=== PATIENT | male | born 1995 | race Caucasian/White ===

== ENCOUNTER 2018-06-11 20:57 | Emergency (ER) | payer MEDICAID, OTHER ==
[~2018-06-11] VITALS: Ht 172.7 cm; Wt 72.7 kg
[2018-06-11 21:01] VITALS: Ht 172.7 cm; Wt 72.7 kg
[2018-06-11] MEDS ORDERED: LORAZEPAM 1 MG TAB PO ONE (22:00)
[2018-06-11 22:43] VITALS: BP 122/74; PULSE 84; RESP 14
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
== END 2018-06-11 23:10 | disposition home or self-care (01) ==
LOC: E/R 20:57
DX: M54.2 Cervicalgia (principal); M79.671 Pain in right foot; M25.571 Pain in right ankle and joints of right foot; R51 Headache; I10 Essential (primary) hypertension; J45.909 Unspecified asthma, uncomplicated
CPT/HCPCS: 73610; 73630; Z7502; Z7610